=== PATIENT | female | born 2000 | race African-American/Black ===

== ENCOUNTER 2023-02-20 11:45 | Emergency (ER) | payer OTHER ==
[~2023-02-20] VITALS: Ht 160 cm; Wt 81.6 kg
[2023-02-20 13:51] VITALS: BP 133/89; TEMP 97.8; O2SAT 98
== END 2023-02-20 12:30 | disposition home or self-care (01) ==
LOC: ER 12:17
DX: J34.89 Other specified disorders of nose and nasal sinuses (principal)